=== PATIENT | female | born 1960 | race Caucasian/White ===

== ENCOUNTER 2019-11-28 14:34 | Outpatient (CLI) | payer OTHER, SELFPAY ==
--- NOTE | ~2019-11-28 | MM_ITS ---
EXAMINATION: MM screening mery BI w toby HISTORY: Screening TECHNIQUE: Craniocaudal and mediolateral oblique 3-D tomosynthesis images were obtained and synthetic 2-D images were generated. CAD analysis was submitted and interpreted. COMPARISON: Comparison to multiple prior studies sequentially, with oldest reviewed study dated 11/16. BREAST PARENCHYMAL COMPOSITION: There are scattered areas of fibroglandular density. FINDINGS: There is no evidence of suspicious mass, calcification, or architectural distortion to sugg est malignancy in either breast. There has been no suspicious interval change. IMPRESSION: 1. No mammographic evidence of malignancy. 2. Recommend routine screening mammography in one year. BI-RADS Category 1: Negative Reviewed, dictated and finalized at location A.
== END 2019-11-28 14:35 | disposition home or self-care (01) ==
LOC: CHSIMG 14:36
PROVIDERS: PCP Internal Medicine; Visit Provider Internal Medicine
DX: Z12.31 Encounter for screening mammogram for malignant neoplasm of breast (principal)
CPT/HCPCS: 77063; 77067

== ENCOUNTER 2021-05-10 15:16 | Emergency (ER) | payer OTHER, SELFPAY ==
--- NOTE | ~2021-05-10 | XR_ITS ---
EXAMINATION: XR ankle LT min 3V, XR foot LT min 3V EXAM DATE: 05/10/2021 16:38 INDICATION: Twisted Her Ankle/Lateral Pain. TECHNIQUE: Left foot dorsoplantar, lateral and oblique projections obtained and reviewed. Left ankle frontal, lateral and oblique projections obtained and reviewed. There is no prior study for compari son. FINDINGS: There is an avulsion fracture of the left medial malleolus, tiny sliver-like fracture fragm ent with about a centimeter of displacement. This could be acute, does not appear corticated on one e dge. However, most of the ankle swelling is seen anterolaterally. The ankle mortise appears intact. T here is moderate 1st metatarsophalangeal joint primary osteoarthritis. Small inferior calcaneal spur . IMPRESSION: 1. Tiny medial malleolar avulsion fracture which could be acute. 2. Soft tissue swelling. 3. 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 Reviewed, dictated and finalized at location G. IMPRESSION: 1. Tiny medial malleolar avulsion fracture which could be acute. 2. Soft tissue swelling. 3. 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
--- NOTE | 2021-05-10 16:23 | ED.LOWEXIN ---
HPI - Extremity Injury (Lower) General Chief Complaint: Extremity Injury, Lower Stated Complaint: left ankle pain Time Seen by Provider: 05/10/21 16:23 Source: patient History of Present Illness HPI Narrative: 60-year-old female with hypertension, ALYSA, anxiety with multiple prior ankle sprains, presented to the ER after she rolled her left ankle at noon. She presents with -- pain and swelling around lateral malleolus of the ankle -- pain left foot. MD complaint: ankle injury and foot injury Onset (ago): hour(s) ( 4 hours ago) Injury: Left: ankle and foot Type of Injury: inversion Place: home Severity: severe Relieving factors: immobilization Exacerbating factors: movement Context: other ( twisted ankle) Associated symptoms: swelling Other symptoms: none Related Data Home Medications Medication Instructions Recorded Confirmed losartan 100 mg DAILY 05/10/21 05/10/21 pravastatin 20 mg DAILY 05/10/21 05/10/21 venlafaxine 75 mg PO DAILY 05/10/21 05/10/21 Allergies Allergy/AdvReac Type Severity Reaction Status Date / Time Penicillins Allergy Unknown Verified 05/10/21 16:25 Review of Systems Review of Systems: All systems reviewed & are unremarkable except as noted in HPI and below Constitutional: Constitutional: Reports as per HPI and Reports no additional constitutional complaints Eyes: Eyes: Reports as per HPI and Reports no additional eye complaints ENT: Reports system reviewed and no additional complaints, except as documented and Reports as per HPI Cardiovascular: Cardiovascular: Reports as per HPI and Reports no additional cardiovascular complaints Respiratory: Respiratory: Reports as per HPI and Reports no additional respiratory complaints Gastrointestinal: Gastrointestinal: Reports as per HPI and Reports no additional gastrointestinal complaints Genitourinary: Genitourinary: Reports no additional female genitourinary complaints and Reports as per HPI Musculoskeletal: Musculoskeletal: Reports arthralgias Comments: left ankle/ foot pain with swelling around the lateral malleolus Integumentary/Breasts: Skin/Breast: Reports system reviewed and no additional complaints, except as docu Neurologic: Reports system reviewed and no additional complaints, except as documented Psychiatric: Psychiatric: Reports no additional psychiatric complaints Endocrine: Endocrine: Reports no additional endocrine complaints Hematologic/Lymphatic: Hematologic/Lymphatic: Reports no additional hematologic/lymphatic complaints Allergic/Immunologic: Allergic/Immunologic: Reports no additional allergic/immunologic complaints [facility] Past Medical History Medical History (Updated 05/10/21 @ 17:19 by Abhijit Rajput MD) Anxiety ALYSA (obstructive sleep apnea) Exam Const: General: no acute distress and alert Orientation/consciousness: patient oriented x3 Limitations: altered mental status HENMT: Head: normal to inspection Eyes: Conjunctivae: conjunctivae normal Pupils: Equal, round and reactive pupils present EOM: EOMs intact bilaterally Neck: Neck: normal visual inspection, no lymphadenopathy and no meningeal signs Chest: Chest palpation & inspection: normal inspection of the chest Resp: Effort & Inspection: normal respiratory effort Auscultation: clear to auscultation bilaterally Cardio: Rate: regular rate Rhythm: regular rhythm GI: GI Palp: Yes Soft to palpation Other: no tenderness/ rigidity/rebound : General: Yes no CVA tenderness Back/Spine/Pelvis: Back: no CVA tenderness Skin: General skin exam: normal color Rashes: no rashes Neuro: General: patient oriented x3 and moves all extremities Extrem: Other: pain and swelling around the lateral malleolus. Tenderness on palpation around the lateral malleolus and the adjoining foot Psych: Mental Status: mental status grossly normal Affect: normal affect Course Course Emergency Course: ankle sprain Vital Signs Vital signs: Vital Si
[2021-05-10 16:30] VITALS: BP 134/83; PULSE 68; RESP 16; TEMP 36.5; O2SAT 99
[2021-05-10 17:34] VITALS: BP 122/81; PULSE 68; RESP 16; O2SAT 100
== END 2021-05-10 17:36 | disposition home or self-care (01) ==
PROVIDERS: Emergency Provider Internal Medicine Critical Care Medicine; PCP Internal Medicine
DX: S82.892A Other fracture of left lower leg, initial encounter for closed fracture (principal); S93.492A Sprain of other ligament of left ankle, initial encounter; X50.1XXA Overexertion from prolonged static or awkward postures, initial encounter
CPT/HCPCS: 29515; 73610; 73630; 99284; L4350

== ENCOUNTER 2021-08-08 14:25 | Outpatient (CLI) | payer OTHER, SELFPAY ==
--- NOTE | 2021-08-08 14:35 | ECG_ITS ---
Measurements Intervals [place] Rate: 75 P: 55 FL: 179 QRS: 35 QRSD: 98 T: 54 QT: 358 QTc: 402 Interpretive Statements SINUS RHYTHM NORMAL ECG NO PREVIOUS ECG AVAILABLE FOR COMPARISON Electronically Signed On 08-08-2021 15:55:27 CDT by Yahir Vernon M.D.
== END 2021-08-08 14:26 | disposition home or self-care (01) ==
LOC: CHSTREATRM 14:28
PROVIDERS: PCP Internal Medicine
DX: K90.9 Intestinal malabsorption, unspecified (principal); Z98.84 Bariatric surgery status; Z68.41 Body mass index [BMI] 40.0-44.9, adult; G47.33 Obstructive sleep apnea (adult) (pediatric)
CPT/HCPCS: 93005

== ENCOUNTER 2021-09-01 14:20 | Outpatient (CLI) | payer OTHER, SELFPAY ==
[2021-09-01 15:11] LABS: SARS-CoV-2 RNA PCR Positive (Negative)
== END 2021-09-01 14:21 | disposition home or self-care (01) ==
LOC: CHSLAB 14:23
PROVIDERS: PCP Internal Medicine; Visit Provider Nurse Practitioner Family
DX: U07.1 COVID-19 (principal)
CPT/HCPCS: C9803; U0003; U0005

== ENCOUNTER 2022-05-25 07:22 | Outpatient (CLI) | payer OTHER, SELFPAY ==
[2022-05-25 07:37] LABS: Basophils Absolute Auto 0.06 K/mm3 (0.00-0.10); Basophils Percent Auto 1.3 % (0.0-1.0); Eosinophils Percent Auto 2.1 % (1.0-6.0); Hematocrit 43.9 % (35.0-49.0); Hemoglobin 13.9 g/dL (12.0-15.0); Immature Granulocyte Absolute 0.01 K/mm3 (0.00-0.00); Immature Granulocyte Percent A 0.2 % (0.0-0.0); Lymphocytes Absolute Auto 1.98 K/mm3 (1.10-4.50); Lymphocytes Percent Auto 41.9 % (18.0-42.0); Mean Corpuscular HGB Conc 31.7 g/dL (32.0-36.0); Mean Corpuscular Hemoglobin 28.4 pg (27.0-31.0); Mean Corpuscular Volume 89.6 fL (78.0-102.0); Mean Platelet Volume 9.3 fl (9.2-11.8); Monocytes Percent Auto 8.5 % (2.0-11.0); Neutrophils Absolute Auto 2.2 K/mm3 (1.7-7.2); Platelet Count Result 296 K/mm3 (150-420); White Blood Count 4.7 K/mm3 (4.8-10.8)
[2022-05-25 07:40] LABS: Appearance Urine Clear (Clear); Bilirubin Urine Negative (Negative); Blood Urine Negative (Negative); Color Urine Yellow (Yellow); Glucose Urine UA Negative (Negative); Ketones Urine Negative (Negative); Leukocyte Esterase Ur Trace LEU/UL (Negative); Nitrate Urine Negative (Negative); Protein Urine Negative (Negative); Specific Grav Ur >= 1.030 (1.010-1.020); Urobilinogen Urine 0.2 mg/dL (0.2-1.0)
[2022-05-25 07:54] LABS: Add Urine Microscopic? YES; Bacteria Urine 1+ /hpf; RBC Urine None seen /hpf (0-2); Squamous Epithelial Cell Urine Few /hpf (Few)
[2022-05-25 08:50] LABS: Alanine Aminotransferase 20 U/L (14-59); Albumin Level 3.6 g/dL (3.4-5.0); Alkaline Phosphatase 72 U/L (46-116); Anion Gap 6 mmol/L (8-16); Aspartate Amino Transferase 19 U/L (15-37); Bilirubin,Total 0.5 mg/dL (0.00-1.00); Blood Urea Nitrogen 16 mg/dL (7-18); Calcium 9.1 mg/dL (8.5-10.1); Carbon Dioxide 31 mmol/L (21-32); Chloride 107 mmol/L (98-108); Cholesterol 227 mg/dL (0-200); Creatine Kinase 55 U/L (26-192); Estimated Glomerular Filt Rate > 60; Free T3 2.54 pg/mL (2.18-3.98); Glucose 81 mg/dL (70-99); HDL Direct 82 mg/dL (40-60); LDL Cholesterol Calculated 122 mg/dL (<130); Osmolality Calculated 298 mOsm/kg (285-295); Potassium 5.1 mmol/L (3.5-5.1); Sodium 144 mmol/L (136-145); Thyroid Stimulating Hormone 0.86 uIU/mL (0.36-3.74); Total Protein 7.1 g/dL (6.4-8.2); Triglycerides 113 mg/dL (0-150)
== END 2022-05-25 07:23 | disposition home or self-care (01) ==
LOC: CHSLAB 07:24
PROVIDERS: PCP Internal Medicine; Visit Provider Internal Medicine
DX: I10 Essential (primary) hypertension (principal); E78.2 Mixed hyperlipidemia
CPT/HCPCS: 36415; 80053; 80061; 81001; 82550; 84439; 84443; 84481; 85025

== ENCOUNTER 2022-06-17 12:10 | Outpatient (CLI) | payer OTHER, SELFPAY ==
--- NOTE | ~2022-06-17 | MM_ITS ---
EXAMINATION: MM screening mery BI w toby HISTORY: Screening mammogram, family history of breast cancer in her mother. TECHNIQUE: Craniocaudal and mediolateral oblique 3-D tomosynthesis images were obtained and synthetic 2-D images were generated. CAD analysis was submitted and interpreted. COMPARISON: 11/28/2019, 08/29/2018, 08/25/2016 BREAST PARENCHYMAL COMPOSITION: There are scattered areas of fibroglandular density. FINDINGS: No suspicious mass, calcification, or architectural distortion are identified in either osmar ast to suggest malignancy. There has been no suspicious interval change. IMPRESSION: 1. No mammographic evidence of malignancy. 2. Recommend routine screening mammography in one year. BI-RADS Category 1: Negative Reviewed, dictated and finalized at location A.
== END 2022-06-17 12:11 | disposition home or self-care (01) ==
LOC: CHSIMG 12:11
PROVIDERS: PCP Internal Medicine; Visit Provider Internal Medicine
DX: Z12.31 Encounter for screening mammogram for malignant neoplasm of breast (principal)
CPT/HCPCS: 77063; 77067

== ENCOUNTER 2023-05-27 06:58 | Outpatient (CLI) | payer OTHER, SELFPAY ==
[2023-05-27 07:23] LABS: Basophils Absolute Auto 0.05 K/mm3 (0.00-0.10); Basophils Percent Auto 1.1 % (0.0-1.0); Eosinophils Absolute Auto 0.09 K/mm3 (0.02-0.50); Eosinophils Percent Auto 1.9 % (1.0-6.0); Hemoglobin 13.6 g/dL (12.0-15.0); Immature Granulocyte Absolute 0.01 K/mm3 (0.00-0.00); Immature Granulocyte Percent A 0.2 % (0.0-0.0); Lymphocytes Absolute Auto 2.01 K/mm3 (1.10-4.50); Lymphocytes Percent Auto 43.5 % (18.0-42.0); Mean Corpuscular HGB Conc 31.6 g/dL (32-36); Mean Corpuscular Hemoglobin 28.5 pg (27.0-31.0); Mean Platelet Volume 9.1 fl (9.2-11.8); Monocytes Percent Auto 6.5 % (2.0-11.0); Neutrophils Absolute Auto 2.16 K/mm3 (1.70-7.20); Neutrophils Percent Auto 46.8 % (50.0-70.0); Platelet Count Result 272 K/mm3 (150-420); Red Blood Count 4.78 M/mm3 (4.20-5.40); Red Cell Distribution Width 13.9 % (11.6-14.4); White Blood Count 4.6 K/mm3 (4.8-10.8)
[2023-05-27 07:53] LABS: Appearance Urine Sl Cloudy (Clear); Bilirubin Urine Negative (Negative); Blood Urine Negative (Negative); Color Urine Light Yellow (Yellow); Glucose Urine UA Negative (Negative); Ketones Urine Negative (Negative); Leukocyte Esterase Ur 2+ (Negative); Nitrate Urine Negative (Negative); Protein Urine Negative (Negative); Specific Grav Ur >= 1.030 (1.010-1.020); Urobilinogen Urine 0.2 mg/dL (0.2-1.0)
[2023-05-27 08:02] LABS: Add Urine Microscopic? YES; Bacteria Urine 2+ /hpf; Mucus Urine Few /lpf; RBC Urine None seen /hpf (0-2); Renal Epithelial Cells Urine Few /hpf; Squamous Epithelial Cell Urine Few /hpf (Few)
[2023-05-27 08:50] LABS: Alanine Aminotransferase 22 U/L (14-59); Albumin Level 3.6 g/dL (3.4-5.0); Alkaline Phosphatase 78 U/L (46-116); Anion Gap 7 mmol/L (4-12); Aspartate Amino Transferase 27 U/L (15-37); Bilirubin,Total 0.4 mg/dL (0.00-1.00); Blood Urea Nitrogen 19 mg/dL (7-18); Carbon Dioxide 30 mmol/L (21-32); Chloride 106 mmol/L (98-108); Cholesterol 252 mg/dL (0-200); Estimated Glomerular Filt Rate 54; Ferritin 37 ng/mL (8-252); Free T3 2.63 pg/mL (2.18-3.98); Free T4 Free Thyroxine 0.88 ng/dL (0.76-1.46); Glucose 82 mg/dL (70-99); HDL Direct 94 mg/dL (40-60); Iron 65 ug/dL (50-170); LDL Cholesterol Calculated 140 mg/dL (<130); Osmolality Calculated 297 mOsm/kg (285-295); Potassium 4.4 mmol/L (3.5-5.1); Sodium 143 mmol/L (136-145); Thyroid Stimulating Hormone 2.33 uIU/mL (0.36-3.74); Triglycerides 90 mg/dL (0-150); Vitamin B12 > 2000 pg/mL (193-986)
[2023-05-29 01:30] LABS: Vitamin D 25 Hydroxy 33 ng/mL (30-100)
[2023-05-30 20:09] LABS: Vitamin A 78 mcg/dL (38-98)
[2023-05-31 16:59] LABS: Zinc 88 mcg/dL (60-130)
[2023-05-31 18:47] LABS: Red Blood Cell Folate 559 ng/mL RBC (>280)
== END 2023-05-27 06:59 | disposition home or self-care (01) ==
LOC: CHSLAB 06:59
PROVIDERS: PCP Internal Medicine; Visit Provider Internal Medicine
DX: I10 Essential (primary) hypertension (principal); E78.2 Mixed hyperlipidemia; Z98.84 Bariatric surgery status; E03.4 Atrophy of thyroid (acquired)
CPT/HCPCS: 36415; 80053; 80061; 81001; 82306; 82607; 82728; 82747; 83540; 84439; 84443; 84481; 84590; 84630; 85025

== ENCOUNTER 2023-06-22 13:09 | Outpatient (CLI) | payer MEDICARE, OTHER, SELFPAY ==
--- NOTE | ~2023-06-22 | MM_ITS ---
EXAMINATION: MM screening mery BI w toby HISTORY: Screening mammogram TECHNIQUE: Craniocaudal and mediolateral oblique 3-D tomosynthesis images were obtained and synthetic 2-D images were generated. CAD analysis was submitted and interpreted. COMPARISON: June 17, 2022 and November 28, 2019 bilateral screening mammogram examinations BREAST PARENCHYMAL COMPOSITION: There are scattered areas of fibroglandular density. FINDINGS: There is no evidence of suspicious mass, calcification, or architectural distortion to sugg est malignancy in either breast. There has been no suspicious interval change. IMPRESSION: 1. No mammographic evidence of malignancy. 2. Recommend routine screening mammography in one year. BI-RADS Category 1: Negative Reviewed, dictated and finalized at location B.
--- NOTE | ~2023-06-22 | DEXA_ITS ---
? Bone Density Report? Name:? NINA CASTRO Patient ID:??? [id number] Age:? 62 Sex:? Female Ethnicity:? White Date of : 1960 Indication: postmenopausal; screening for osteoporosis; height loss; hysterectomy; Referring Provider: Billy Evans Study: Bone densitometry was performed. Exam Date: June 22, 2023 Accession number: [id number] Bone Density: Region? BMD??? T-score? Z-score?? Classification AP Spine(L1-L4)? 1.095??? 0.4?2.2? Normal Femoral Neck (Left)? 0.759?? -0.8? 0.7? Normal Total Hip (Left)? 1.047??? 0.9? 2.1? Normal Femoral Neck (Right)? 0.792?? -0.5? 1.0? Normal Total Hip (Right)? 0.995??? 0.4? 1.7? Normal Femoral Neck Mean? 0.776?? -0.7? 0.8? Normal Total Hip Mean? 1.021??? 0.6? 1.9? Normal World Health Organization criteria for BMD impression classify patients as: Normal (T-score at or above -1.0), Osteopenia (T-score between -1.0 and -2.5), or Osteoporosis (T-score at or below -2.5). 10-year Fracture Risk: FRAX not reported because: ? All T-scores for Spine Total, Hip Total, Femoral Neck at or above -1.0 Clinical Information Provided by Patient: Smokes Has used the following medications: Calcium, multi Has the following medical conditions: Hysterectomy Patient maximum height was 69 Menopause Age: 38 Does not regularly consume dairy products Drinks caffeinated beverages Onset of menses at age 10 Number of children 2 Impression: The patient has normal bone mass. The patient has risk factors, including: smoking. Discussion: BONE DENSITY IS ABOVE THE MINIMUM DESIRABLE LEVEL AT ALL SKELETAL SITES TESTED. This patient?s bone mineral density is above the minimum desirable level (T- score -1.0 or better) at all sites measured. The patient should follow a healthful lifestyle (good nutrition with adequate calcium and vitamin D, and appropriate weight-bearing exercise). Follow-Up: Consider repeating this study in 5 years or sooner if there is some new clinical indication. Reported by: Dr. Lee Blank on 06/23/2023 12:33:00 PM. ARIE
== END 2023-06-22 13:10 | disposition home or self-care (01) ==
LOC: CHSIMG 13:13
PROVIDERS: PCP Internal Medicine; Visit Provider Internal Medicine
DX: Z12.31 Encounter for screening mammogram for malignant neoplasm of breast (principal); Z78.0 Asymptomatic menopausal state
CPT/HCPCS: 77063; 77067; 77080

== ENCOUNTER 2023-12-29 06:52 | Outpatient (CLI) | payer MEDICARE, OTHER, SELFPAY ==
[2023-12-29 07:07] LABS: Basophils Absolute Auto 0.06 K/mm3 (0.00-0.10); Basophils Percent Auto 1.1 % (0.0-1.0); Eosinophils Absolute Auto 0.08 K/mm3 (0.02-0.50); Eosinophils Percent Auto 1.5 % (1.0-6.0); Hematocrit 41.5 % (35.0-42.0); Hemoglobin 13.3 g/dL (11.7-13.8); Immature Granulocyte Absolute 0.01 K/mm3 (0.00-0.00); Immature Granulocyte Percent A 0.2 % (0.0-0.0); Lymphocytes Absolute Auto 2.31 K/mm3 (1.10-4.50); Lymphocytes Percent Auto 42.1 % (18.0-42.0); Mean Corpuscular Hemoglobin 28.3 pg (27.0-31.0); Mean Corpuscular Volume 88.3 fL (78.0-102.0); Monocytes Absolute Auto 0.51 K/mm3 (0.10-0.90); Monocytes Percent Auto 9.3 % (2.0-11.0); Neutrophils Absolute Auto 2.52 K/mm3 (1.70-7.20); Neutrophils Percent Auto 45.8 % (50.0-70.0); Platelet Count Result 292 K/mm3 (150-420); Red Cell Distribution Width 13.9 % (11.6-14.4); White Blood Count 5.5 K/mm3 (4.8-10.8)
[2023-12-29 07:17] LABS: Add Urine Microscopic? YES; Appearance Urine Sl Cloudy (Clear); Bilirubin Urine Negative (Negative); Blood Urine Negative (Negative); Color Urine Light Yellow (Yellow); Glucose Urine UA Negative (Negative); Ketones Urine Negative (Negative); Leukocyte Esterase Ur 2+ (Negative); Nitrate Urine Negative (Negative); Protein Urine Negative (Negative); Specific Grav Ur 1.025 (1.010-1.020); Urobilinogen Urine 0.2 mg/dL (0.2-1.0); pH Urine 5.5 (5.0-8.0)
[2023-12-29 07:45] LABS: Bacteria Urine 2+ /hpf; RBC Urine None seen /hpf (0-2); Renal Epithelial Cells Urine Few /hpf; Squamous Epithelial Cell Urine Few /hpf (Few)
[2023-12-29 07:58] LABS: Alanine Aminotransferase 15 U/L (14-59); Albumin Level 3.4 g/dL (3.4-5.0); Alkaline Phosphatase 73 U/L (46-116); Anion Gap 9 mmol/L (4-12); Aspartate Amino Transferase 15 U/L (15-37); Bilirubin,Total 0.3 mg/dL (0.00-1.00); Blood Urea Nitrogen 19 mg/dL (7-18); Calcium 9.3 mg/dL (8.5-10.1); Carbon Dioxide 29 mmol/L (21-32); Chloride 106 mmol/L (98-108); Cholesterol 234 mg/dL (0-200); Creatine Kinase 77 U/L (26-192); Estimated Glomerular Filt Rate > 60; Glucose 79 mg/dL (70-99); HDL Direct 76 mg/dL (40-60); LDL Cholesterol Calculated 122 mg/dL (<130); Osmolality Calculated 299 mOsm/kg (285-295); Potassium 4.4 mmol/L (3.5-5.1); Sodium 144 mmol/L (136-145); Total Protein 6.5 g/dL (6.4-8.2); Triglycerides 178 mg/dL (0-150)
== END 2023-12-29 06:53 | disposition home or self-care (01) ==
LOC: CHSLAB 06:56
PROVIDERS: PCP Internal Medicine; Visit Provider Internal Medicine
DX: E78.2 Mixed hyperlipidemia (principal); I10 Essential (primary) hypertension; M25.562 Pain in left knee; Z98.84 Bariatric surgery status
CPT/HCPCS: 36415; 80053; 80061; 81001; 82550; 85025

== ENCOUNTER 2024-07-26 06:57 | Outpatient (CLI) | payer MEDICARE, SELFPAY ==
--- OUTSIDE RECORDS SUMMARY | 2024-07-26 07:01 | XMS_ITS | Referral Summary ---
Author Organization [facility] Address [address] [place] [address] Care Team Providers Care Landscape Foreman Name Role Phone Billy Evans MD Primary Care Provider + [phone] Allergies Active Allergy Reactions Criticality Noted Date Comments Penicillins Unknown 10/10/2015 As a child Propoxyphene Dizziness,Nausea only Low Medications losartan (COZAAR) 100 mg tablet Take 100 mg by mouth every morning. Active aspirin 325 mg tablet Take 325 mg by mouth every morning. Active sodium chloride (SARAH 128) 5 % ophthalmic solution Administer 1 drop into both eyes 3 (three) times a day. Active prednisoLONE acetate (PRED FORTE) 1 % ophthalmic suspension INSTILL 1 DROP INTO RIGHT EYE TWICE DAILY 2 8 Active PNV no.95/ferrous fum/folic ac ( ORAL)Indication s:qd Take by mouth. Activ e diazePAM (VALIUM) 10 mg tablet Take 10 mg by mouth nightly at bedtime. 2 9 Active CALCIUM CITRATE ORAL Take by mouth Unsure med dosage qd Active venlafaxine XR (EFFEXOR-XR) 75 mg 24 hr capsule daily 9 Active pravastatin (PRAVACHOL) 20 mg tablet Take 20 mg by mouth daily 0 Active buPROPion XL (WELLBUTRIN XL) 300 mg 24 hr tabletIndicatio ns:BMI 40.0-44.9, adult (HCC),Morbid obesity (HCC),History of depression Take 1 tablet (300 mg total) by mouth every morning 90 tablet 2 3 Active naltrexone (DEPADE) 50 mg tabletIndicatio ns:BMI 40.0-44.9, adult (HCC),Morbid obesity (HCC) TAKE ONE TABLET BY MOUTH DAILY 30 tablet 2 3 Active Active Problems Problem Noted Date Diagnosed Date History of sleeve gastrectomy 03/25/2018 Bariatric surgery status 10/22/2017 HTN (hypertension), benign 10/22/2017 Hypercholesteremia 10/22/2017 Hypertriglyceridemia 10/22/2017 ALSYA (obstructive sleep apnea) 10/22/2017 Depression 10/22/2017 Anxiety 10/22/2017 Morbid obesity due to excess calories 08/04/2017 Overview (08/06/2017): Added automatically from request for surgery [id number] BMI 50.0-59.9, adult 07/16/2017 Screening for iron deficiency anemia 06/29/2017 Adjustment disorder with depressed mood 06/14/19 18 Status post total left knee replacement 01/15/20 16 Left knee pain 10/10/2015 Encounter for preventive health examination 07/17 Social History Tobacco Use Types Packs/Day Years Used Date Smoking Tobacco: Every Day Cigarettes 0.5 47.4 Started: 1977 E-cigarettes Vaping Smokeless Tobacco: Never Alcohol Use Standard Drinks/Week Comments Yes 0 (1 standard drink = 0.6 oz pur e alcohol) less than one drink a week Comments No Sex and Gender Information Value Date Recorded Sex Assigned at Not on file 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 Gender Identity Female 09/22/2018 12:43 PM CDT Sexual Orientation Straight 09/22/2018 12 :43 PM CDT Last Filed Vital Signs Vital Sign Reading Time Taken Comments Blood Pressure 137/84 08/04/2021 10:29 AM CDT Pulse 67 08/04/2021 10:29 AM CDT Temperature 36.1 C (97 F) 08/04/2021 10:29 AM CDT Respiratory Rate 16 10/14/2017 11:50 AM CDT Oxygen Saturation 97% 10/14/2017 11:50 AM CDT Inhaled Oxygen Concentration - - Weight 127 kg (280 lb) 08/04/2021 10:29 AM CDT Height 175.3 cm (5' 9) 08/04/2021 10:29 AM CDT Body Mass Index 41.35 08/04/2021 10:29 AM CDT Plan of Treatment Not on file Medical Devices Implanted Type Area Farm Operations Technical Director Device Identifier Shelf Expiration Date Model / Serial / Lot Knee Left: Knee [facility] [facility] OPEN ACCESS Member Subscriber Plan / Payer (Ef fective 2017-Present) Name:Nina Castro Member ID:[id number] Relation to Subscriber:Self Name:NINA CASTRO Subscriber ID:[id number] Payer ID:[id number] Group ID:Not on file Type:[employer] HMO/PPO Address: [facility] [id number] [address] Advance Directives For more information, please contact: [phone] * Full Code (Latest Code Status on File) Date Activated Date Inactivated Comments 10/12/2017 2:43 PM 10/14/2017 8:00 PM Care Teams Landscape Foreman Relationship Specialty Start Date End Date Billy Evans MD [address] [place] [address] PCP - General 04/14/17
--- OUTSIDE RECORDS SUMMARY | 2024-07-26 07:01 | XMS_ITS | Encounter Summary ---
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 Gender Identity Female 09/22/2018 12:43 PM CDT Sexual Orientation Straight 09/22/2018 12 :43 PM CDT documented as of this encounter Plan of Treatment Not on file documented as of this encounter Procedures Procedure Name Priority Date/Time Associated Diagnosis Comments SCAN - LABS 08/08/2021 documented in this encounter Results * SCAN - LABS (08/08/2021) us Provider Scanning Final Result documented in this encounter Visit Diagnoses Not on filedocumented in this encounter Care Teams Warehouse Loader Relationship Specialty Start Date End Date Billy Evans MD [address] [place], [place] [id number] PCP - General 04/14/17 documented as of this encounter
--- OUTSIDE RECORDS SUMMARY | 2024-07-26 07:01 | XMS_ITS | Encounter Summary ---
Author Organization [facility] Address [address] [place] [address] Care Team Providers Care Vat House Supervisor Name Role Phone Billy Evans MD Primary Care Provider Encounter Details Date Type Department Care Team (Late st Contact Info) Description 10/15/2017 Documentation [facility] [id number] [place] [address] Eula Arita RN Social History Tobacco Use Types Packs/Day Years Used Date Smoking Tobacco: Every Day Cigarettes 0.5 47.4 Started: 1979 Smokeless Tobacco: Never Alcohol Use Standard Drinks/Week Comments Yes 0 (1 standard drink = 0.6 oz pur e alcohol) less than one drink a week Comments No Sex and Gender Information Value Date Recorded Sex Assigned at Not on file 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
--- OUTSIDE RECORDS SUMMARY | 2024-07-26 07:01 | XMS_ITS | Clinical Summary ---
Author Organization [facility] Address [address] [place] [address] Care Team Providers Care Functional Mental Disability Teacher Name Role Phone Billy Evans MD Primary Care Provider [phone] Rubia PERALTA MD, Tyrel Unavailable [phone] Source Comments [facility],non-owned Affiliates and Associated Physician Practices is amultiple site organization consisting of ambulatory clinics and hospital sitesin [place], [place], [place] and [place]. This disclosure is being madepursuant to the Care Everywhere program and may not contain all information available regarding this patient. Last updated 17.[facility] Allergies Active Allergy Reactions Criticality Noted Date Comments Penicillins 10/10/2015 As a child Medications * Be aware that medications may not be up to date on this document. Alwaysverify current medications with the patient. losartan (COZAAR) 100 MG tablet Take 100 mg by mouth once daily 1 10/01/2015 Active potassium chloride SA (MICRO-K) 10 MEQ capsule Take 10 mEq by mouth once daily 10/01/2015 Active triamterene-hyd roCHLOROthiazid e (DYAZIDE) 37.5-25 MG capsule Take 1 Cap by mouth once daily 10/01/2015 Active fluorometholone (FML) 0.1 % ophthalmic suspension INSTILL 1 DROP IN THE RIGHT EYE TWICE A DAY 4 09/18/2015 Active pravastatin (PRAVACHOL) 40 MG tablet Take 40 mg by mouth once daily 1 08/03/2015 Active venlafaxine XR 24hr (EFFEXOR XR) 150 MG capsule Take 150 mg by mouth once daily 1 07/23/2015 Active FOLIC ACID PO Take 40 mg by mouth once daily Active sodium chloride, hypertonic, (SARAH 128) 5 % Instill into both eyes at bedtime Active sodium chloride, hypertonic, (SARAH-128) 5 % ophthalmic solution 1 Drop 3 times daily Active oxyCODONE-aceta minophen (PERCOCET) 10-325 MG tablet Take 0.5-1 Tabs by mouth every 6 hours as needed for Pain 90 Tab 0 11/28/2015 Active hydrOXYzine pamoate (VISTARIL) 25 MG capsule Take 1 Cap by mouth 4 times daily as needed 60 Cap 1 12/06/2015 Active Active Problems Problem Noted Date Diagnosed Date Status post total left knee replacement 01/15/20 16 Left knee pain 10/10/2015 Resolved Problems Problem Noted Date Diagnosed Date Resolved Date Status post total bilateral knee replacement 6 01/15/2016 Social History Tobacco Use Types Packs/Day Years Used Date Smoking Tobacco: Former Cigarettes S tarted: 11/03/2015 Alcohol Use Standard Drinks/Week Comments Yes 0 (1 standard drink = 0.6 oz pur e alcohol) on occ Comments No Sex and Gender Information Value Date Recorded Sex Assigned at Not on file Legal Sex Female 11:18 AM CDT Gender Identity Not on file Sexual Orientation Not on file Last Filed Vital Signs Vital Sign Reading Time Taken Comments Blood Pressure 177/83 11/29/2015 8:43 AM CDT Pulse 107 11/29/2015 8:43 AM CDT Temperature 36.8 C (98.2 F) 11/29/2015 8:43 AM CDT Respiratory Rate 18 11/29/2015 8:43 AM CDT Oxygen Saturation 94% 11/29/2015 8:43 AM CDT Inhaled Oxygen Concentration - - Weight 160.1 kg (353 lb) 11/26/2015 8:58 AM CDT Height 177.8 cm (5' 10) 11/26/2015 8:58 AM CDT Body Mass Index 50.65 11/26/2015 8:58 AM CDT Plan of Treatment Health Maintenance Due Date Last Done Comments BONE DENSITY TESTING 1960 COLOGUARD (AGES 45-75) - COL ON CA SCREENING 1960 COLON MONITORING 1960 COLONOSCOPY - COLON CA SCREENING 1960 CT COLONOGRAPHY - COLON CA SCREENING 1960 Colorectal Cancer Screening 1960 FIT - COLON CA SCREENING 1960 FLEX SIG - COLON CA SCREENING 1960 MAMMOGRAM 1960 HEPATITIS C SCREENING 07/08/1976 DTAP/TDAP/TD VACCINES (1 - Tdap) 1977 PNEUMOCOCCAL VACCINE 50+ (1 of 1 - PCV) 2008 ZOSTER VACCINE (1 of 2) 2008 COVID-19 VACCINE (1 - 2023-2 5 season) 2023 DEPRESSION SCREENING 02/16/2024 INFLUENZA VACCINE (Season Ended) 2024 Respiratory Syncytial Virus (RSV) Vaccine Pt: or over 60 yrs (1 - 1-dose 75+ series) 2033 HEPATITIS B VACCINE Aged Out No longe r eligible based on patient's age to complete this topic HIB VACCINE Aged Out No longer eligi ble based on patient's age to complete this topic HPV VACCINE Aged Out No longer eligi ble based on patient's age to complete this topic MENINGOCOCCAL (Group B) VACC INE SHARED DECISION-MAKING Aged Out No longer eligibl e based on patient's age to complete this topic MENINGOCOCCAL GROUPS A/C/Y/W VACCINE Aged Out No longer eligible b ased on patient's age to complete this topic Medical Devices Implanted Type Area Dye Expert Device Identifier Shelf Expiration Date Model / Serial / Lot Cmpnt Fem Kn Lt 5 Crcte Rtn Legion Kumari Implanted:Qty: 1 on 11/26/2015 by Tyrel Barkley IV, MD at [facility] Left: Knee [employer] 06/14/2025 [id number] / / [id number] Bsplt Tib Legion 5 Kn Lt Kumari Por Implanted:Qty: 1 on 11/26/2015 by Tyrel Barkley IV, MD at [facility] Left: Knee [employer] 07/14/2021 [id number] / / [id number] Stem Tib 55mm 18mm Prfx Mtphsl Kn Implanted:Qty: 1 on 11/26/2015 by Tyrel Barkley IV, MD at [facility] Left: Knee [employer] 06/09/2025 [id number] / / [id number] Screw Bsplt 20mm 6.5mm Gns2 Kn Tib Por Implanted:Qty: 1 on 11/26/2015 by Tyrel Barkley IV, MD at [facility] Left: Knee [employer] 05/15/2023 [id number] / / [id number] Screw Bsplt 20mm 6.5mm Gns2 Kn Tib Por Implanted:Qty: 1 on 11/26/2015 by Tyrel Barkley IV, MD at [facility] Left: Knee [employer] 03/31/2025 [id number] / / [id number] Screw Bsplt 30mm 6.5mm Gns2 Kn Tib Por Implanted:Qty: 1 on 11/26/2015 by Tyrel Barkley IV, MD at [facility] Left: Knee [employer] 06/16/2025 [id number] / / [id number] [place] [facility] [place] Address: [facility] [id number] [place] [address] Advance Directives * Full Code (Latest Code Status on File) Date Activated Date Inactivated Comments 11/26/2015 1:51 PM 11/29/2015 2:55 PM Care Teams Functional Mental Disability Teacher Relationship Specialty Start Date End Date Billy Evans MD PCP - General Internal Medicine 09/30/15 [place] [id number] [address] Orthopedic Surgery 09/30/15
--- OUTSIDE RECORDS SUMMARY | 2024-07-26 07:01 | XMS_ITS | Clinical Summary ---
Author Organization [facility] Address [address] [place] [address] Care Team Providers [employer] Name Role Phone Billy Evans MD Primary Care Provider + [phone] Allergies Active Allergy Reactions Criticality Noted Date [...] (hypertension), benign 10/22/2017 Hypercholesteremia 10/22/2017 Hypertriglyceridemia 10/22/2017 ALYSA (obstructive sleep apnea) 10/22/2017 Depression 10/22/2017 Anxiety 10/22/2017 Morbid obesity due to excess calories 08/04/2017 Overview (08/06/2017): Added automatically from request for surgery [id number] BMI 50.0-59.9, adult 07/16/2017 Screening for iron deficiency anemia 06/29/2017 Adjustment disorder with depressed mood 06/14/19 18 Status post total left knee replacement 01/15/20 16 Left knee pain 10/10/2015 Encounter for preventive health examination 07/17 Surgical History Surgery Date Site/Laterality Comments TUBAL LIGATION FOOT SURGERY CHOLECYSTECTOMY HYSTERECTOMY CORNEAL TRANSPLANT fuchs dystrophy- R CATARACT EXTRACTION REPLACEMENT TOTAL KNEE Left SLEEVE GASTROPLASTY BARIATRIC SURGERY 2018 Medical History Medical History Date Comments Migraine Morbid obesity (HCC) Anxiety Depression Fuchs' corneal dystrophy Difficult intravenous access Sleep apnea Hypercholesteremia TIA (transient ischemic attack) History of sleeve gastrectomy 03/25/2018 Family History Medical History Relation Name Comments Sleep apnea Father Kenn Sleep apnea Maternal Grandmother Lodema Cancer Mother Colleen Family history of malignant neoplasm - (Added by TW Conv)/Family history of malignant neoplasm - (Added by TW Conv) Hypertension Mother Colleen Family history of hypertension - (Added by TW Conv)/Family history of hypertension - (Added by TW Conv) Obesity Mother Colleen Family history of obesity - (Added by TW Conv)/Family history of obesity - (Added by TW Conv) Obesity Other 1 Family history of obesity - Relation: Grandparent (Added by TW Conv) Cancer Other 2 Family history of malignant neoplasm - Relation: Grandparent (Added by TW Conv) Diabetes Other 3 Family history of diabetes mellitus - Relation: Grandparent (Added by TW Conv) Obesity Other 4 Family history of obesity - Relation: Grandparent (Added by TW Conv) Cancer Other 5 Family history of malignant neoplasm - Relation: Grandparent (Added by TW Conv) Diabetes Other 6 Family history of diabetes mellitus - Relation: Grandparent (Added by TW Conv) Relation Name Status Comments Father Kenn Maternal Grandmother Lodema Mother Colleen Other 1 Other 2 Other 3 Other 4 Other 5 Other 6 Social History Tobacco Use Types Packs/Day Years [...] on file Legal Sex Female 10:47 AM [employer] Gender Identity Female 09/22/2018 12:43 PM CDT Sexual Orientation Straight 09/22/2018 12 :43 PM CDT Obstetrics History Last Filed Vital Signs Vital Sign Reading [...] 08/04/2021 10:29 AM CDT Plan of Treatment Health Maintenance Due Date Last Done Comments Breast Cancer Screening-Mammogram 1958 Colon Cancer Screening-Colonoscopy 1960 Depression Screening 1958 Fall Risk Assessment 1958 Hepatitis C Screening 1958 Osteoporosis Screening-Bone Density Scan 1958 Hepatitis B Screening 1976 Zoster Vaccine (1 of 2) 2008 Pneumococcal vaccine 65+ (2 of 2 - PPSV23) 08/14/2015 06/19/2015 Well Visit 65+ 07/14/2023 Influenza Vaccine (Season Ended) 2024 12/29/2018, 12/09/2017, 12/04/2011 DTaP/Tdap/Td Vaccine (2 - Td or Tdap) 08/01/2028 Medical Devices Implanted Type Area Engine Lathe Tender Device Identifier Shelf Expiration Date Model / Serial / Lot Knee Left: Knee Insurance [employer] [facility] [employer] [facility] Advance Directives For more information, please contact: [phone] * Full Code (Latest Code Status on File) Date Activated Date Inactivated Comments 10/12/2017 2:43 PM 10/14/2017 8:00 PM Care Teams [employer] Relationship Specialty Start Date End Date Billy Evans MD [address] [place] [address] PCP - General 04/14/17
[2024-07-26 07:15] LABS: Basophils Absolute Auto 0.04 K/mm3 (0.00-0.10); Basophils Percent Auto 0.9 % (0.0-1.0); Eosinophils Percent Auto 2.2 % (1.0-6.0); Hematocrit 41.8 % (35.0-42.0); Hemoglobin 13.2 g/dL (11.7-13.8); Immature Granulocyte Absolute 0.01 K/mm3 (0.00-0.00); Immature Granulocyte Percent A 0.2 % (0.0-0.0); Mean Corpuscular HGB Conc 31.6 g/dL (32-36); Mean Corpuscular Hemoglobin 28.4 pg (27.0-31.0); Mean Corpuscular Volume 90.1 fL (78.0-102.0); Mean Platelet Volume 8.9 fl (9.2-11.8); Monocytes Absolute Auto 0.38 K/mm3 (0.10-0.90); Monocytes Percent Auto 8.4 % (2.0-11.0); Neutrophils Absolute Auto 2.02 K/mm3 (1.70-7.20); Neutrophils Percent Auto 44.3 % (50.0-70.0); Platelet Count Result 277 K/mm3 (150-420); Red Blood Count 4.64 M/mm3 (4.20-5.40); Red Cell Distribution Width 14.3 % (11.6-14.4); White Blood Count 4.6 K/mm3 (4.8-10.8)
[2024-07-26 07:19] LABS: Add Urine Microscopic? YES; Appearance Urine Sl Cloudy (Clear); Bilirubin Urine Negative (Negative); Blood Urine Trace-intact (Negative); Glucose Urine UA Negative (Negative); Ketones Urine Negative (Negative); Leukocyte Esterase Ur 2+ (Negative); Nitrate Urine Negative (Negative); Protein Urine Negative (Negative); Specific Grav Ur 1.025 (1.010-1.020); Urobilinogen Urine 0.2 mg/dL (0.2-1.0); pH Urine 5.5 (5.0-8.0)
[2024-07-26 07:43] LABS: Bacteria Urine 3+ /hpf; Color Urine Yellow (Yellow); RBC Urine 0-2 /hpf (0-2); Squamous Epithelial Cell Urine Moderate /hpf (Few); WBC Urine 21-30 /hpf (0-3)
[2024-07-26 08:20] LABS: Alanine Aminotransferase 13 U/L (6-35); Albumin Level 3.9 g/dL (3.5-5.1); Alkaline Phosphatase 62 U/L (38-126); Anion Gap 4 mmol/L (4-12); Aspartate Amino Transferase 24 U/L (14-36); Bilirubin,Total 0.6 mg/dL (0.2-1.3); Blood Urea Nitrogen 18 mg/dL (7-17); Carbon Dioxide 27 mmol/L (22-30); Chloride 109 mmol/L (98-107); Cholesterol 222 mg/dL (0-200); Estimated Glomerular Filt Rate > 60; Glucose 81 mg/dL (65-110); HDL Direct 83 mg/dL; Iron 82 ug/dL (37-170); LDL Cholesterol Calculated 118 mg/dL (<130); Osmolality Calculated 290 mOsm/kg (285-295); Potassium 4.8 mmol/L (3.4-5.0); Sodium 140 mmol/L (137-145); Triglycerides 103 mg/dL (<150)
[2024-07-26 08:36] LABS: Vitamin D 25 Hydroxy 24.9 ng/mL
[2024-07-28 12:08] LABS: Red Blood Cell Folate 585 ng/mL RBC (>280)
[2024-07-31 08:54] LABS: Zinc 67 mcg/dL (60-130)
[2024-07-31 14:54] LABS: Vitamin A 64 mcg/dL (38-98)
== END 2024-07-26 06:58 | disposition home or self-care (01) ==
LOC: CHSLAB 06:59
PROVIDERS: PCP Internal Medicine; Visit Provider Internal Medicine
DX: I10 Essential (primary) hypertension (principal); E78.2 Mixed hyperlipidemia; Z98.84 Bariatric surgery status; E55.9 Vitamin D deficiency, unspecified; K90.9 Intestinal malabsorption, unspecified
CPT/HCPCS: 36415; 80053; 80061; 81001; 82306; 82607; 82728; 82747; 83540; 84590; 84630; 85025

== ENCOUNTER 2024-08-09 09:12 | Outpatient (CLI) | payer MEDICARE, OTHER, SELFPAY ==
--- NOTE | ~2024-08-09 | MM_ITS ---
EXAMINATION: MM screening mery BI w toby HISTORY: Screening mammogram, family history of breast cancer in her mother. TECHNIQUE: Craniocaudal and mediolateral oblique 3-D tomosynthesis images were obtained and synthetic 2-D images were generated. CAD analysis was submitted and interpreted. COMPARISON: 06/22/2023, 06/17/2022, 11/28/2019 BREAST PARENCHYMAL COMPOSITION:Not Dense. There are scattered areas of fibroglandular density. FINDINGS: No suspicious mass, calcification, or architectural distortion are identified in either osmar ast to suggest malignancy. There has been no suspicious interval change. IMPRESSION: No mammographic evidence of malignancy. Recommend routine screening mammography in one year. BI-RADS Category 1: Negative Reviewed, dictated and finalized at location .
== END 2024-08-09 09:13 | disposition home or self-care (01) ==
PROVIDERS: PCP Internal Medicine; Visit Provider Internal Medicine
DX: Z12.31 Encounter for screening mammogram for malignant neoplasm of breast (principal)
CPT/HCPCS: 77063; 77067